=== PATIENT | male | born 1960 | race Caucasian/White ===

== ENCOUNTER 2017-10-01 19:48 | Emergency (ER) | payer MEDICAID ==
[~2017-10-01] VITALS: Ht 5954.8 cm; Wt 103.0 kg
[~2017-10-01 19:48] MED LIST: DILT120C52 PO; DIPH25CA49 PO; LITH300C43 PO; OLAN20TA16 PO; ZOLP10TA5 PO
[2017-10-01] MEDS ORDERED: adenosine 3mg/ml 2ml vial IV ONE ×2 (20:10)
[2017-10-01 20:22] LABS: BASOPHILS % (AUTO) 0.3 % (0-1); EOSINOPHILS # (AUTO) 0.2 X10'3 (0-0.9); EOSINOPHILS % (AUTO) 1.6 % (0-6); HEMATOCRIT 38.2 % (42.0-52.0); LYMPHOCYTES # (AUTO) 3.4 X10'3 (1.1-4.8); LYMPHOCYTES % (AUTO) 26.9 % (21-51); MEAN CORPUSCULAR HEMOGLOBIN 32.3 PG (27.0-31.0); MEAN CORPUSCULAR HGB CONC 34.1 % (33.0-36.5); MEAN CORPUSCULAR VOLUME 94.6 FL (78-98); MEAN PLATELET VOLUME 9.4 FL (7.4-10.4); MONOCYTES % (AUTO) 7.7 % (2-12); NEUTROPHILS % (AUTO) 63.5 % (42-75); PLATELET COUNT 255 X10'3 (140-440); RED BLOOD COUNT 4.04 X10'6 (4.70-6.10); RED CELL DISTRIBUTION WIDTH 13.2 % (11.5-14.5); WHITE BLOOD COUNT 12.7 X10'3 (4.5-11.0)
[2017-10-01 20:35] LABS: PARTIAL THROMBOPLASTIN TIME 27 SECONDS (22-32); PROTHROMBIN TIME 10.2 SECONDS (9.0-12.0)
[2017-10-01 20:49] LABS: ALANINE AMINOTRANSFERASE 23 U/L (12-78); ALBUMIN 3.7 G/DL (3.4-5.0); ALBUMIN/GLOBULIN RATIO 0.9 (1.1-1.5); ALKALINE PHOSPHATASE 135 IU/L (46-116); ANION GAP 13 (8-16); ASPARTATE AMINO TRANSFERASE 16 U/L (10-37); BILIRUBIN,TOTAL 0.2 MG/DL (0.1-1.0); BLOOD UREA NITROGEN 28 MG/DL (7-18); CALCIUM 8.9 MG/DL (8.5-10.1); CHLORIDE 108 MMOL/L (99-107); CREATININE 1.47 MG/DL (0.60-1.10); GLUCOSE 110 MG/DL (70-104); POTASSIUM 3.8 MMOL/L (3.5-5.1); SODIUM 143 MMOL/L (135-145); TOTAL CARBON DIOXIDE 22.3 MMOL/L (24-32); TOTAL PROTEIN 7.8 G/DL (6.4-8.2); eGFR 50 ML/MIN
[2017-10-01] MEDS ORDERED: FERR325T28 PO (21:16)
[2017-10-01 21:26] VITALS: BP 135/89
== END 2017-10-01 21:27 | disposition home or self-care (01) ==
LOC: ER 19:48
DX: I47.1 Supraventricular tachycardia (principal); I49.9 Cardiac arrhythmia, unspecified; Z79.899 Other long term (current) drug therapy; Z98.890 Other specified postprocedural states
CPT/HCPCS: 36415; 71045; 80053; 84484; 85025; 85610; 85730; 93005; 99285; J7030

== ENCOUNTER 2017-11-30 16:19 | Emergency (ER) | payer MEDICAID ==
[~2017-11-30] VITALS: Ht 182.9 cm; Wt 100.6 kg
[~2017-11-30 16:19] MED LIST changes: +DILT120C22 PF; -DILT120C52 PO; -DIPH25CA49 PO; +DOCU100C41 PO
[2017-11-30] MEDS ORDERED: CLIN150C2 PO (16:59)
[2017-11-30 17:28] VITALS: BP 135/71
== END 2017-11-30 17:33 | disposition home or self-care (01) ==
LOC: ER 16:20
DX: K04.7 Periapical abscess without sinus (principal); I49.9 Cardiac arrhythmia, unspecified; Z98.890 Other specified postprocedural states; Z79.899 Other long term (current) drug therapy
CPT/HCPCS: 99283

== ENCOUNTER 2019-02-11 09:28 | Emergency (ER) | payer MEDICAID ==
[~2019-02-11] VITALS: Ht 182.2 cm; Wt 104.5 kg
[~2019-02-11 09:28] MED LIST changes: -OLAN20TA16 PO; +OLAN20TA34 PO
[2019-02-11] MEDS ORDERED: CYCL-1 PO (10:09)
[2019-02-11] MEDS ORDERED: ketorolac trometh inj. 60 MG/2 ML VIAL IM ONE (10:10)
[2019-02-11 10:21] VITALS: BP 114/69
== END 2019-02-11 10:22 | disposition home or self-care (01) ==
LOC: ER 09:29
DX: S39.012A Strain of muscle, fascia and tendon of lower back, initial encounter (principal); F31.9 Bipolar disorder, unspecified; Z98.890 Other specified postprocedural states; Z79.899 Other long term (current) drug therapy; X50.1XXA Overexertion from prolonged static or awkward postures, initial encounter; Y93.89 Activity, other specified; Y92.89 Other specified places as the place of occurrence of the external cause; Y99.8 Other external cause status
CPT/HCPCS: 96372; 99283; J1885

== ENCOUNTER 2019-11-24 06:22 | Emergency (ER) | payer MEDICAID ==
[~2019-11-24] VITALS: Ht 182.9 cm; Wt 109.1 kg
[~2019-11-24 06:22] MED LIST changes: +CYCL-1 PO
[2019-11-24] MEDS ORDERED: adenosine 3mg/ml 2ml vial IV ONE ×3 (06:40)
[2019-11-24 07:02] LABS: BASOPHILS # (AUTO) 0.1 X10'3 (0-0.2); BASOPHILS % (AUTO) 0.6 % (0-1); EOSINOPHILS # (AUTO) 0.1 X10'3 (0-0.9); EOSINOPHILS % (AUTO) 1.4 % (0-6); HEMATOCRIT 40.5 % (42.0-52.0); HEMOGLOBIN 13.5 g/dl (14.0-17.9); LYMPHOCYTES % (AUTO) 27.9 % (21-51); MEAN CORPUSCULAR HEMOGLOBIN 31.8 PG (27.0-31.0); MEAN CORPUSCULAR HGB CONC 33.3 g/dL (33.0-36.5); MEAN CORPUSCULAR VOLUME 95.6 FL (78-98); MEAN PLATELET VOLUME 9.1 FL (7.4-10.4); MONOCYTES # (AUTO) 0.8 X10'3 (0-0.9); MONOCYTES % (AUTO) 7.3 % (2-12); NEUTROPHILS # (AUTO) 6.8 X10'3 (1.8-7.7); NEUTROPHILS % (AUTO) 62.8 % (42-75); PLATELET COUNT 253 X10'3 (140-440); RED BLOOD COUNT 4.24 X10'6 (4.70-6.10); RED CELL DISTRIBUTION WIDTH 13.4 % (11.5-14.5); WHITE BLOOD COUNT 10.7 X10'3 (4.5-11.0)
[2019-11-24 07:13] LABS: ALANINE AMINOTRANSFERASE 29 U/L (12-78); ALBUMIN 3.4 G/DL (3.4-5.0); ALBUMIN/GLOBULIN RATIO 0.8 (1.1-1.5); ALKALINE PHOSPHATASE 123 IU/L (46-116); ANION GAP 10 (8-16); ASPARTATE AMINO TRANSFERASE 16 U/L (10-37); BILIRUBIN,TOTAL 0.2 MG/DL (0.1-1.0); BLOOD UREA NITROGEN 19 MG/DL (7-18); BUN/CREATININE RATIO 14.5 (5.4-32.0); CALCIUM 8.3 MG/DL (8.5-10.1); CHLORIDE 109 MMOL/L (99-107); CREATININE 1.31 MG/DL (0.60-1.10); GLUCOSE 134 MG/DL (70-104); POTASSIUM 3.8 MMOL/L (3.5-5.1); SODIUM 140 MMOL/L (135-145); TOTAL CARBON DIOXIDE 21.2 MMOL/L (24-32); TOTAL PROTEIN 7.5 G/DL (6.4-8.2); eGFR 57 ML/MIN
[2019-11-24 07:22] LABS: MAGNESIUM 2.1 MG/DL (1.5-2.4)
[2019-11-24 07:48] VITALS: BP 112/73
== END 2019-11-24 07:49 | disposition home or self-care (01) ==
LOC: ER 06:23
DX: I47.1 Supraventricular tachycardia (principal); F31.9 Bipolar disorder, unspecified; Z98.890 Other specified postprocedural states; Z79.899 Other long term (current) drug therapy
CPT/HCPCS: 36415; 71045; 80053; 83735; 83880; 84484; 85025; 93005; 96374; 99291; J0153

== ENCOUNTER 2022-10-07 07:21 | Emergency (ER) | payer MEDICAID ==
[~2022-10-07] VITALS: Ht 180.3 cm; Wt 104.5 kg
[2022-10-07 08:02] LABS: BASOPHILS % (AUTO) 0.2 % (0-1); EOSINOPHILS # (AUTO) 0.1 X10'3 (0-0.9); EOSINOPHILS % (AUTO) 0.4 % (0-6); HEMATOCRIT 35.4 % (42.0-52.0); HEMOGLOBIN 11.9 g/dl (14.0-17.9); LYMPHOCYTES # (AUTO) 1.6 X10'3 (1.1-4.8); LYMPHOCYTES % (AUTO) 10.1 % (21-51); MEAN CORPUSCULAR HEMOGLOBIN 32.5 PG (27.0-31.0); MEAN CORPUSCULAR HGB CONC 33.7 g/dL (33.0-36.5); MEAN CORPUSCULAR VOLUME 96.5 FL (78-98); MONOCYTES # (AUTO) 0.9 X10'3 (0-0.9); MONOCYTES % (AUTO) 5.5 % (2-12); NEUTROPHILS # (AUTO) 13.6 X10'3 (1.8-7.7); NEUTROPHILS % (AUTO) 83.8 % (42-75); PLATELET COUNT 247 X10'3 (140-440); RED BLOOD COUNT 3.67 X10'6 (4.70-6.10); RED CELL DISTRIBUTION WIDTH 13.1 % (11.5-14.5); WHITE BLOOD COUNT 16.2 X10'3 (4.5-11.0)
[2022-10-07 08:15] LABS: ALANINE AMINOTRANSFERASE 19 U/L (12-78); ALBUMIN 3.3 G/DL (3.4-5.0); ALKALINE PHOSPHATASE 127 IU/L (46-116); ANION GAP 6 (8-16); ASPARTATE AMINO TRANSFERASE 11 U/L (10-37); BILIRUBIN,TOTAL 0.3 MG/DL (0.1-1.0); BLOOD UREA NITROGEN 20 MG/DL (7-18); BUN/CREATININE RATIO 15.2 (10.0-20.0); CALCIUM 8.7 MG/DL (8.5-10.1); CHLORIDE 111 MMOL/L (99-107); CREATININE 1.32 MG/DL (0.60-1.10); GLUCOSE 137 MG/DL (70-104); POTASSIUM 3.8 MMOL/L (3.5-5.1); SODIUM 141 MMOL/L (135-145); TOTAL CARBON DIOXIDE 24.2 MMOL/L (24-32); TOTAL PROTEIN 6.6 G/DL (6.4-8.2); eGFR 56 ML/MIN
[2022-10-07 08:42] VITALS: BP 140/73
== END 2022-10-07 08:43 | disposition home or self-care (01) ==
LOC: ER 07:22
DX: I47.1 Supraventricular tachycardia (principal); F31.9 Bipolar disorder, unspecified; Z88.8 Allergy status to other drugs, medicaments and biological substances
CPT/HCPCS: 36415; 80053; 83735; 85025; 93005; 99284

== ENCOUNTER 2022-10-10 06:44 | Emergency (ER) | payer MEDICAID ==
[~2022-10-10] VITALS: Ht 175.3 cm; Wt 95.5 kg
[2022-10-10] MEDS ORDERED: adenosine 3mg/ml 2ml vial IV ONE ×4 (06:54→06:56)
--- NOTE | 2022-10-10 06:54 | NUR ---
PROVIDER AT BEDSIDE, PT ATTACHED TO MONITOR, VAGAL MANEUVERS WERE ATTEMPTED WITH NO SUCCESS.
--- NOTE | 2022-10-10 06:59 | NUR ---
0658 6MG OF ADENOSINE GIVEN, WAS CONVERTED TO NSR.
[2022-10-10 07:01] LABS: BASOPHILS % (AUTO) 0.2 % (0-1); EOSINOPHILS # (AUTO) 0.1 X10'3 (0-0.9); EOSINOPHILS % (AUTO) 0.8 % (0-6); HEMATOCRIT 39.5 % (42.0-52.0); HEMOGLOBIN 13.1 g/dl (14.0-17.9); LYMPHOCYTES # (AUTO) 3.1 X10'3 (1.1-4.8); LYMPHOCYTES % (AUTO) 19.2 % (21-51); MEAN CORPUSCULAR HEMOGLOBIN 32.4 PG (27.0-31.0); MEAN CORPUSCULAR HGB CONC 33.1 g/dL (33.0-36.5); MEAN CORPUSCULAR VOLUME 97.8 FL (78-98); MEAN PLATELET VOLUME 9.5 FL (7.4-10.4); MONOCYTES # (AUTO) 1.1 X10'3 (0-0.9); MONOCYTES % (AUTO) 7.1 % (2-12); NEUTROPHILS # (AUTO) 11.7 X10'3 (1.8-7.7); NEUTROPHILS % (AUTO) 72.7 % (42-75); PLATELET COUNT 307 X10'3 (140-440); RED BLOOD COUNT 4.04 X10'6 (4.70-6.10); RED CELL DISTRIBUTION WIDTH 13.2 % (11.5-14.5)
--- NOTE | 2022-10-10 07:01 | NUR ---
119/74, HR 99, 96% RA, 0/10 PAIN
[2022-10-10 07:25] LABS: ALANINE AMINOTRANSFERASE 24 U/L (12-78); ALBUMIN 3.6 G/DL (3.4-5.0); ALBUMIN/GLOBULIN RATIO 0.9 (1.1-1.5); ALKALINE PHOSPHATASE 136 IU/L (46-116); ANION GAP 9 (8-16); ASPARTATE AMINO TRANSFERASE 16 U/L (10-37); BILIRUBIN,TOTAL 0.2 MG/DL (0.1-1.0); BLOOD UREA NITROGEN 17 MG/DL (7-18); BUN/CREATININE RATIO 11.1 (10.0-20.0); CALCIUM 9.5 MG/DL (8.5-10.1); CHLORIDE 107 MMOL/L (99-107); CREATININE 1.53 MG/DL (0.60-1.10); GLUCOSE 164 MG/DL (70-104); POTASSIUM 3.9 MMOL/L (3.5-5.1); SODIUM 142 MMOL/L (135-145); TOTAL CARBON DIOXIDE 25.6 MMOL/L (24-32); TOTAL PROTEIN 7.5 G/DL (6.4-8.2); eGFR 47 ML/MIN
[2022-10-10] MEDS ORDERED: normal saline 1000ML IV soln IVB ONE (07:55)
[2022-10-10 09:34] VITALS: BP 107/68
== END 2022-10-10 09:35 | disposition home or self-care (01) ==
LOC: ER 06:45
DX: R07.89 Other chest pain (principal); I47.1 Supraventricular tachycardia; F31.9 Bipolar disorder, unspecified; Z98.890 Other specified postprocedural states; Z79.899 Other long term (current) drug therapy
CPT/HCPCS: 36415; 80053; 83735; 83880; 84484; 85025; 93005; 96361; 96374; 99291; J0153; J7030; A4620

== ENCOUNTER 2024-05-26 08:52 | Emergency (ER) | payer MEDICAID ==
[~2024-05-26] VITALS: Ht 182.2 cm; Wt 113.6 kg
[~2024-05-26 08:52] MED LIST changes: -OLAN20TA34 PO; +OLAN20TA81 PO
[2024-05-26 09:09] VITALS: BP 135/90; PULSE 100; RESP 18; TEMP 97.9; O2SAT 99
[2024-05-26] MEDS ORDERED: SENN8.6T19 PO (09:49)
== END 2024-05-26 09:58 | disposition home or self-care (01) ==
LOC: ER 08:52
DX: K59.00 Constipation, unspecified (principal); F31.9 Bipolar disorder, unspecified; Z98.890 Other specified postprocedural states; Z88.8 Allergy status to other drugs, medicaments and biological substances
CPT/HCPCS: 99282

== ENCOUNTER 2024-12-19 09:06 | Emergency (ER) | payer MEDICAID ==
[~2024-12-19] VITALS: Ht 180.3 cm; Wt 111.0 kg
[~2024-12-19 09:06] MED LIST changes: +SENN8.6T19 PO
--- NOTE | 2024-12-19 09:34 | Physician Documentation ---
History of Present Illness General Chief Complaint: Rapid Heartbeat Stated Complaint: SVT Time Seen by MD: 09:22 Primary Medical Doctor: nannette carrera History of Present Illness Initial Comments The patient is a 63-year-old male with a history of SVT who reportedly had another episode this morning. Paramedics gave him adenosine and he quickly converted to normal sinus rhythm. Medication Reconciliation Allergies: Uncoded Allergies: SODIUM PENTATHOL (Allergy, Unknown, 02/09/16) Scheduled Diltiazem HCl (Diltiazem ER), 2 PF DAILY, (Reported) Docusate Sodium (Docusate Sodium), 1 CAP PO DAILY, (Reported) [place] Carbonate* ([place] Carbonate*), 600 MG PO HS, (Reported) Olanzapine (Olanzapine), 20 MG PO HS, (Reported) Sennosides (Senna Laxative), 1-2 TAB PO BID Zolpidem Tartrate* (Ambien*), 10 MG PO HSP, (Reported) Scheduled PRN Cyclobenzaprine* (Cyclobenzaprine*), 1 TABLET PO Q8H PRN for muscle spasms Past Medical History Past Medical History: Arrhythmia, Hernia, Bipolar Past Surgical History: orthopedic surgeries Other Past Surgical History: Hernia repair Smoking: Non-Smoker Alcohol Use: None Drug Use: none Lives with: Spouse Lives In: Home Occupation: employed Review of Systems ROS Constitutional: Denies chills, fatigue, fever, weight gain or weight loss. HEENT: Denies hearing loss, sinus pressure or visual changes. Respiratory: Denies cough, shortness of breath or wheezing. Cardiovascular: Palpitations (resolved) Gastrointestinal: Denies abdominal pain, blood in stool, constipation, diarrhea, heartburn, loss of appetite, nausea or vomiting. Genitourinary: Denies painful urination (dysuria), excessive amount of urine (polyuria) or urinary frequency. Metabolic/Endocrine: Denies cold intolerance, heat intolerance, excessive th irst (polydipsia) or excessive hunger (polyphagia). Neurological: Denies dizziness, extremity numbness, extremity weakness, h eadaches, seizures or tremors. Psychiatric: Denies anxiety or depression. Integumentary: Denies breast discharge, breast lump, hives, mole change(s), rash or skin lesion. Musculoskeletal: Denies back pain, joint pain, joint swelling or neck pain. Hematologic: Denies easily bleeding, easily bruises, lymphedema or issues with blood clots. Immunologic: Denies food allergies or seasonal allergies. Physical Exam Physical Exam Vital Signs: Temperature: 98.3, Source: Oral, Heart Rate: 89, Respiratory Rate: 17, BP: 100/57, Pulse Oximetry: 97, Weight: 111.000 Oxygen Flow Rate: 0 Physical Exam Physical Exam Vitals and nursing note reviewed. Constitutional: General: Patient is awake, alert, oriented x 4 in no acute distress and well appearing. Speech is clear and lucid. Appearance: Normal appearance. Patient is not ill-appearing, toxic-appearing or diaphoretic. HENT: Head: Normocephalic and atraumatic. Mouth/Throat: Mouth: Mucous membranes are moist. Pharynx: Oropharynx is clear. Eyes: General: No scleral icterus. Extraocular Movements: Extraocular movements intact. Pupils: Pupils are equal, round, and reactive to light. Neck: Supple, no Kernig or Brudzinski sign. Cardiovascular: Rate and Rhythm: Normal rate and regular rhythm. Heart sounds: No murmur heard. Pulmonary: Effort: No respiratory distress. Breath sounds: No wheezing, rhonchi or rales. Abdominal: General: There is no distension. Palpations: There is no fluid wave, hepatomegaly or mass. Tenderness: There is no abdominal tenderness. There is no guarding. Musculoskeletal: General: No swelling or deformity. Skin: Coloration: Skin is not jaundiced. Findings: No erythema or rash. Neurological: Mental Status: Patient is alert. Progress Results/Orders Results/Orders Vital Signs 12/19/24 12/19/24 09:10 09:28 Temp 98.3 Pulse 90 89 Resp 18 17 B/P (MAP) 107/61 100/57 (71) Pulse Ox 97 97 O2 Flow Rate 0 0 Medical Decision Making Findings EKG medically necessary in the evaluation of SVT after conversion and interpreted by me at the time of patient evaluation. Rhythm is sinus rhythm with a rate of 89, low voltage in extremity leads. QRSD axis 86 nonspecific T-wave abnormalities anterolaterally Impression: Abnormal EKG. This patient had an episode of SVT which resolve with the adenosine. It resembled his previous episodes. I am going to have him follow up with his PCP for possible referral to Cardiology. Departure Disposition: HOME / SELF CARE / HOMELESS Impression: Primary Impression: Paroxysmal SVT (supraventricular tachycardia) Additional Impression Text It is important to see your doctor or primary care provider. Emergency care may be incomplete without proper follow-up. Symptoms sometimes change or new symptoms might arise after you leave the emergency department. It is important that you call your doctor if you become worse in any way, or return to the emergency department. You are strongly urged to follow-up with your physician to assure complete and thorough care. Please call your doctor's office today, and informed them that you were seen in the emergency department, and that you need to be seen immediately for close follow-up. If you do not have a primary care doctor we encourage you to proactively seek a local physician for close follow-up. Consider local clinics, [facility], or local [facility]. Prior to discharge we spoke at length concerning symptoms that would merit reevaluation, but please return to the emergency department for any symptoms that are concerning to you, and we will be happy to continue your evaluation and treatment. Please note you can always return to the emergency department if you are having difficulty coordinating close follow-up. If medications were prescribed, you should fill them at your local pharmacy immediately and take only as prescribed. Bring your new medications to your doctors follow-up visit to discuss any changes that would be necessary. Please check lettrst for any results you did not receive in the Emergency Department: often we are unable to get all your tests back before you leave, and these tests need to be reviewed by your PCP and yourself. You can also call Medical Records if you are unable to access the internet to see [facility]. Return to the emergency department immediately for worsening chest pain, difficulty breathing, sweating, or other concerning emergent symptoms. Condition: Stable Referrals: NO PRIMARY CARE PROVIDER (PCP) Education Educated: Patient Educated regarding: diagnosis, treatment, prognosis, need for follow up Signature Scribe Signature: . Attestation: PITER LOPEZ MD Dec 19, 2024 09:34
[2024-12-19 10:05] VITALS: BP 100/50; PULSE 87; RESP 14; TEMP 98.3; O2SAT 95
--- NOTE | 2024-12-19 13:20 | ELECTROCARDIOGRAPH REPORT ---
[facility] Test Date: 2024-12-19 Test Time: 09:10:32 Pat Name: ERNIE DAVIS Department: EMERGENCY ROOM Room: Gender: M Carbonator: NALLELY : 1960 Requested By: DEPARTMENT EMERGENCY Order Number: [id number] Reading MD: Measurements Intervals [place] Rate: 89 P: 8 DC: 170 QRS: -4 QRSD: 86 T: 0 QT: 356 QTc: 434 Interpretive Statements Sinus rhythm Low voltage, extremity leads Nonspecific T abnrm, anterolateral leads Please click the below link to view image of tracing.
== END 2024-12-19 10:05 | disposition home or self-care (01) ==
LOC: ER 09:06
DX: I47.10 Supraventricular tachycardia, unspecified (principal); F31.9 Bipolar disorder, unspecified; Z98.890 Other specified postprocedural states; Z79.899 Other long term (current) drug therapy; Z86.79 Personal history of other diseases of the circulatory system
CPT/HCPCS: 93005; 99283

== ENCOUNTER 2025-04-19 21:39 | Emergency (ER) | payer MEDICAID ==
[~2025-04-19] VITALS: Ht 180.3 cm; Wt 111.4 kg
--- NOTE | 2025-04-19 22:19 | Physician Documentation ---
History of Present Illness ~ Chief Complaint: Constipation Stated Complaint: CONSTIPATION Time Seen by MD: 21:59 OK to notify your PCP?: Yes Primary Medical Doctor: nannette carrera Source: patient Mode of Arrival: POV Exam Limitations: no limitations HPI This is a 64-year-old male who comes in complaining of constipation. The patient states he has not had a bowel movement in about five days. He says he was having normal bowel movements in the went to passing small firm stool now he says he is only passing gas. He is not complaining of abdominal pain. He denies nausea or vomiting. He denies dark tarry or bloody stools. He does not take pain medication. Medication Reconciliation Allergies: Uncoded Allergies: SODIUM PENTATHOL (Allergy, Unknown, 02/09/16) Scheduled Diltiazem HCl (Diltiazem ER), 2 PF DAILY, (Reported) Docusate Sodium (Docusate Sodium), 1 CAP PO DAILY, (Reported) [place] Carbonate* ([place] Carbonate*), 600 MG PO HS, (Reported) Olanzapine (Olanzapine), 20 MG PO HS, (Reported) Sennosides (Senna Laxative), 1-2 TAB PO BID Zolpidem Tartrate* (Ambien*), 10 MG PO HSP, (Reported) Scheduled PRN Cyclobenzaprine* (Cyclobenzaprine*), 1 TABLET PO Q8H PRN for muscle spasms Past Medical History Past Medical History: Arrhythmia, Hernia, Bipolar Past Surgical History: orthopedic surgeries Other Past Surgical History: Hernia repair Alcohol Use: None Drug Use: none Lives with: Spouse Lives In: Home Occupation: employed Physical Exam Vital Signs: Temperature: 98.6, Source: Oral, Heart Rate: 99, Respiratory Rate: 16, BP: 140/76, Pulse Oximetry: 98, Weight: 111.400 Oxygen Flow Rate: 0 Pulse Oximetry Reflects: adequate oxygenation General Appearance: alert, WD/WN Gastrointestinal Inspection of the abdomen no obvious distention. No tenderness to palpation x4 quadrants. No rigidity, rebound or guarding. Negative Barron's sign. Negative McBurney's point tenderness Neurologic: oriented x4 Skin: normal color, warm/dry Progress Results/Orders Reviewed/noted all lab results: Yes Results/Orders Orders - EFREN JANG Abdomen,Single View(Kub) (04/19/25 ) Completed Orders - EFREN JANG Abdomen,Single View(Kub) (04/19/25 ) Magnesium Citrate Oral Paige. (Magnesium C (04/19/25 22:00) Medications Received in ER Medications (Trade) Dose Ordered Sig/Debra Route PRN Reason Start Time Stop Time Status Last Admin Dose Admin (magnesium citrate oral solution) 296 ml ONCE ONCE PO 04/19/25 22:00 04/19/25 22:02 DC 04/19/25 22:23 296 ML Vital Signs 04/19/25 21:41 Temp 98.6 Pulse 99 Resp 16 B/P (MAP) 140/76 Pulse Ox 98 O2 Flow Rate 0 Medical Decision Making Additional information obtaine: N/A Diff Dx GI Bleed:Consideration: Include: AE fistula, Angiodysplasia, Bleeding diathesis, Blood loss anemia, Carcinoma, Diverticulosis, Diverticulitis, Esophageal varicies, Esophagitis, Gastritis, Gastroenteritis, Inflammatory BD, Nicki-Rabago syndrome, Meckel's diverticulum, PUD, Other Diff Dx Pain:Considerations: Include: AAA, Angina/FL, Aortic dissection, Appendicitis, Bowel obstruction, Cholangitis, Cholecystitis, Cholelithasis, Constipation, Diverticular disease, Esophageal rupture, Esophagitis, Gastritis, Gastroenteritis, GI hemorrhage, Hepatitis, Hernia, Inflammatory BD, Ischemic bowel, Mass, Pancreatitis, Porphyria, PUD, Testicular torsion, Trauma, intraabdominal, Urinary obstruction, Urinary tract infection, Urolithiasis, Other Diff Dx N/V/D:Considerations: Include: Appendicitis, Bowel obstruction, Dehydration, DKA, Diarrhea - bacterial, Diarrhea - parasitic, Diarrhea - viral, Diverticulitis, Diverticulosis, Drug toxicity, Electrolyte imbalance, Food poisoning, Gastroenteritis, GE reflux, GI bleed, Hepatitis, Hernia, Hypovolemia, Hypotension, Inflammatory BD, Impaction, Malnutrition, Pancreatitis, PUD, Renal failure, Urinary obstruction, UTI, Urolithiasis, Other Diff Dx Rectal:Considerations: Include: Fissure, Fistula, Foreign body, Impaction, Perirectal abscess, Prostatitis, Rectal prolapse, Subcutaneous abscess, Thrombosed hemorrhoid, Ulcer, UTI, Other Additional Comments Patient's he has a tried any stool softeners at home. I gave him Mag citrate p.o. here. I will prescribe Colace and MiraLax for now with the instructions to drink plenty of water he plenty of fruits and vegetables. You can follow up with the primary care physician for recheck in the coming week. Return for any worsening or concerning symptoms. Clinically the patient is well-appearing in no apparent distress. There was nothing to indicate an acute surgical abdomen Departure Disposition: HOME / SELF CARE / HOMELESS Impression: Primary Impression: Constipation Condition: Stable Discharge Instructions: Constipation, Adult Additional Instructions: Take the Colace morning and night in his scoop of MiraLax once a day. Drink lots of water and he plenty of fruits and vegetables. You can also try to home enemas if desired. Follow up with the primary care physician for recheck in the coming week. Return to the ER for any worsening or concerning symptoms Referrals: NO PRIMARY CARE PROVIDER (PCP) Prescriptions Docusate Sodium (Colace) 100 Mg Capsule 1 CAP PO Q12H for 30 Days, #60 CAP 0 Refills Prov: EFREN JANG 04/19/25 Polyethylene Glycol 3350 (Miralax) 17 Gram/Dose Powder 17 GM PO DAILY for constipation, #527 GM 0 Refills dissolve in water Prov: EFREN JANG 04/19/25 Signature Scribe Signature: No scribe Attestation: The note accurately reflects work and decisions made by me.Efren CARL 04/19/25 22:28 EFREN JANG Apr 19, 2025 22:19
[2025-04-19] MEDS: magnesium citrate 296ml oral solution PO ONE (22:23)
[2025-04-19] MEDS ORDERED: DOCU-148 PO (22:28)
[2025-04-19] MEDS ORDERED: POLY119P2 PO (22:28)
[2025-04-19 22:33] VITALS: BP 140/74; PULSE 98; RESP 18; TEMP 98.6; O2SAT 99
--- NOTE | 2025-04-19 22:57 | RADIOLOGY REPORT ---
Exam: X-ray abdomen Indication: No bowel movement five days Comparison: None Technique: 2 radiographic views of the abdomen. FINDINGS/IMPRESSION: Mildly prominent loops of bowel within the central abdomen. Moderate stool burden. No free air. No acute osseous abnormality.
== END 2025-04-19 22:36 | disposition home or self-care (01) ==
LOC: ER 21:40
DX: K59.00 Constipation, unspecified (principal); F31.9 Bipolar disorder, unspecified; Z98.890 Other specified postprocedural states
CPT/HCPCS: 74018; 99283